=== PATIENT | female | born 1985 | race Caucasian/White ===

== ENCOUNTER 2016-07-24 19:55 | Inpatient (IN) | payer OTHER ==
[~2016-07-24 19:55] MED LIST: MISOPROSTOL 200 MCG TABLET ONE; OXYTOCIN 30U/ 0.9% NaCL 500ML 500 ML ONE
[2016-07-24] MEDS ORDERED: OXYTOCIN 10 UNITS/ML, 1ML ONE (19:56)
[2016-07-24] MEDS ORDERED: LIDOCAINE 1%, 20ML ONE (19:56)
[2016-07-24] MEDS ORDERED: OXYTOCIN 30U/ 0.9% NaCL 500ML 500 ML IV ONE (20:21)
[2016-07-24] MEDS: LACTATED RINGERS 1,000 ML IV SCH (20:21)
[2016-07-24] MEDS: PLEASE ENTER HEIGHT AND WEIGHT MC SCH (20:30)
[2016-07-24 20:45] VITALS: BP 125/79
[2016-07-24] MEDS ORDERED: NEWBORN KIT ONE (20:51)
[2016-07-24] MEDS ORDERED: DOCUSATE 100 MG CAPSULE PO PRN (21:00)
[2016-07-24] MEDS ORDERED: ACETAMINOPHEN 325 MG TABLET PO PRN (21:00)
[2016-07-24] MEDS ORDERED: OXYcodone/APAP 5/325MG TABLET PO PRN ×2 (21:00)
[2016-07-24] MEDS ORDERED: METOCLOPRAMIDE 5 MG/ML, 2ML IV PRN (21:00)
[2016-07-24] MEDS ORDERED: ONDANSETRON 2MG/ML, 2ML IV PRN (21:00)
[2016-07-24] MEDS ORDERED: CALCIUM CARBONATE 500 MG TAB.CHEW PO PRN (21:00)
[2016-07-24] MEDS: OXYTOCIN 30U/ 0.9% NaCL 500ML 500 ML IV SCH (21:20)
[2016-07-24] MEDS ORDERED: IBUPROFEN 600 MG TABLET ONE (21:22)
[2016-07-24] MEDS: IBUPROFEN 600 MG TABLET PO PRN (21:24)
[2016-07-24 23:00] VITALS: BP 107/71
[2016-07-25 03:40] VITALS: BP 105/67
[2016-07-25] MEDS: IBUPROFEN 600 MG TABLET PO PRN ×2 (03:41→09:48)
[2016-07-25] MEDS: LACTATED RINGERS 1,000 ML IV SCH (04:21)
[2016-07-25] MEDS: PLEASE ENTER HEIGHT AND WEIGHT MC SCH (04:30)
[2016-07-25] MEDS: OXYTOCIN 30U/ 0.9% NaCL 500ML 500 ML IV SCH (06:32)
[2016-07-25 08:00] VITALS: BP 99/63
[2016-07-25] MEDS ORDERED: PRENATAL VIT/IRON/FA 1 EACH TABLET PO SCH (09:00)
[2016-07-25] MEDS ORDERED: FERR325T23 PO (13:39)
[2016-07-25] MEDS ORDERED: DOCU-30 PO (13:40)
[2016-07-25] MEDS ORDERED: IBUP800T PO (13:41)
== END 2016-07-25 19:30 | disposition home or self-care (01) | DRG 775 ==
LOC: LDIP 19:55 → 2NW 22:30
PROVIDERS: ADMIT Obstetrics & Gynecology; ATTEND Obstetrics & Gynecology
PROC: 10E0XZZ Delivery of Products of Conception, External Approach (ICD-10-PCS; principal; 2016-07-24)
PROC: 0KQM0ZZ Repair Perineum Muscle, Open Approach (ICD-10-PCS; 2016-07-24)
DX: O62.3 Precipitate labor (principal); Z37.0 Single live birth; O34.219 Maternal care for unspecified type scar from previous cesarean delivery; O70.1 Second degree perineal laceration during delivery; Z87.59 Personal history of other complications of pregnancy, childbirth and the puerperium; Z3A.40 40 weeks gestation of pregnancy
CPT/HCPCS: 36415; 85025; 86850; 86900; J2590